=== PATIENT | female | born 1975 | race American Indian/Alaskan Native ===

== ENCOUNTER 2019-01-29 13:58 | Outpatient (CLI) | payer BC ==
--- NOTE | 2019-01-29 15:45 | Mammography Report ---
DIGITAL SCREENING MAMMOGRAM WITH CAD, 01/29/2019 INDICATION: Baseline screening mammography. TECHNIQUE: Digital bilateral 2D mammography was obtained in the craniocaudal and mediolateral obliq ue projections. This examination was interpreted with the benefit of Computer-Aided Detection analysi s. COMPARISON: None. FINDINGS: Breast Density: The breasts are extremely dense, which lowers the sensitivity of mammography. There is no evidence of dominant mass, suspicious calcifications or architectural distortion in eithe r breast. IMPRESSION: No mammographic evidence of malignancy. Follow up recommendation: Routine yearly BI-RADS Category 2: Benign. A "normal" or negative report should not discourage follow up or biopsy of a clinically significant f inding. A written summary of these findings will be mailed to the patient. The patient will be entered into a mammography reporting system which will generate a reminder letter for the patient's next appointmen t at the appropriate interval. The [employer] recommends yearly mammograms starting at age 40 and continuing as l jacklyn as a woman is in good health. Breast MRI is recommended for women with an approximate 20-25% or greater lifetime risk of breast cancer, including women with a strong family history of breast or ova elina cancer or who have been treated for Hodgkin's disease. Signer Name: Olivier Mata MD Signed: 01/29/2019 3:41 PM Workstation Name: [id number]
== END 2019-01-29 13:59 | disposition home or self-care (01) ==
LOC: MAMMO 13:58
PROVIDERS: ATTEND Surgery
DX: Z12.31 Encounter for screening mammogram for malignant neoplasm of breast (principal)
CPT/HCPCS: 77067

== ENCOUNTER 2019-06-30 05:39 | Day surgery (SDC) | payer BC, OTHER ==
[~2019-06-30 05:39] MED LIST: LACTATED RINGERS 1,000 ML IV SCH
[2019-06-30] MEDS ORDERED: VANCOMYCIN/NS 1 GM/250 ML 1 GM/250 ML BAG IV NR (06:00)
[2019-06-30] MEDS ORDERED: GABAPENTIN 300 MG CAP PO NR (06:00)
[2019-06-30] MEDS ORDERED: MAGNESIUM OXIDE 400 MG TAB PO SCH (06:00)
[2019-06-30] MEDS ORDERED: MIDAZOLAM 2 MG/2 ML INJ IV NR (06:00)
[2019-06-30] MEDS ORDERED: SCOPOLAMINE TRANSDERMAL PATCH 72 HR TD NR (06:00)
[2019-06-30] MEDS ORDERED: CELECOXIB 200 MG CAP PO NR (06:00)
[2019-06-30] MEDS ORDERED: BACTERIOSTATIC SODIUM CHLORIDE 0.9% 30 ML VIAL INFILTRATI ONE (06:51)
[2019-06-30] MEDS ORDERED: SODIUM CHLORIDE 0.9% 1000 ML 1,000 ML, EPINEPHrine/PF 1:1,000 1 MG, LIDOCAINE 1% 20 mL ... IJ NR (07:00)
[2019-06-30] MEDS ORDERED: fentaNYL 100 MCG/2 ML INJ ONE (07:27)
[2019-06-30] MEDS ORDERED: MIDAZOLAM 2 MG/2 ML INJ ONE (07:27)
[2019-06-30] MEDS ORDERED: propofoL 200 MG/20 ML VIAL IV ONE (07:27)
[2019-06-30] MEDS ORDERED: ROCURONIUM 50 MG/5 ML INJ IV ONE (07:27)
[2019-06-30] MEDS ORDERED: LIDOCAINE MPF (2%) 20 MG/1 ML VIAL 5 ML ONE (07:27)
[2019-06-30] MEDS ORDERED: METOCLOPRAMIDE 10 MG/2 ML INJ ONE (07:28)
[2019-06-30] MEDS ORDERED: dexAMETHasone 20 MG/5 ML VIAL ONE (07:28)
[2019-06-30] MEDS ORDERED: ONDANSETRON 4 MG/2 ML INJ ONE (07:28)
[2019-06-30] MEDS ORDERED: HYDROmorphone 1 MG/1 ML INJ IV PRN (07:38)
--- NOTE | 2019-06-30 07:38 | Anesthesia Day of Surgery ---
Anesthesia Day of Surgery - Day of Surgery Patient Examined: Yes Patient H&P Reviewed: Yes Patient is NPO: Yes
--- NOTE | 2019-06-30 07:38 | Anesthesia Consultation ---
Anesthesia Consult and Med Hx Date of service: 06/30/19 - Airway Anesthetic Teeth Evaluation: Good ROM Head & Neck: Adequate Mental/Hyoid Distance: Adequate Mallampati Class: Class I Intubation Access Assessment: Good - Pulmonary Exam CTA: Yes - Cardiac Exam Cardiac Exam: RRR - Pre-Operative Health Status ASA Pre-Surgery Classification: ASA1 Proposed Anesthetic Plan: General - Pulmonary Hx Respiratory Symptoms: No - Cardiovascular System Hx Hypertension: No - Central Nervous System CVA: No - Gastrointestinal Hx Gastroesophageal Reflux Disease: No - Endocrine Hx Renal Disease: No Hx Liver Disease: No Hx Insulin Dependent Diabetes: No Hx Non-Insulin Dependent Diabetes: No Hx Thyroid Disease: No - Other Systems Hx Alcohol Use: Yes (OCCA) Hx Obesity: No - Additional Comments Anesthesia Medical History Comments: No hx anesthetic complications.
[2019-06-30] MEDS ORDERED: LIDOCAINE 1%/EPINEPHRINE 1:100,000 VIAL (20 ML) INFILTRATI ONE ×2 (07:41→08:51)
[2019-06-30] MEDS ORDERED: HYDROmorphone 1 MG/1 ML INJ ONE (08:45)
[2019-06-30] MEDS ORDERED: SODIUM CHLORIDE 0.9% IRR 1,500 ML BOTTLE IR ONE (11:02)
[2019-06-30] MEDS ORDERED: KETOROLAC 30 MG/1 ML INJ ONE (13:44)
[2019-06-30] MEDS ORDERED: LACTATED RINGERS 2,000 ML ONE (14:06)
[2019-06-30] MEDS ORDERED: PHENYLEPHRINE/NS 1,000 MCG/10 ML SYRINGE (OR USE) IV ONE (14:07)
[2019-06-30] MEDS ORDERED: GLYCOPYRROLATE 0.4 MG/2 ML INJ ONE (14:33)
[2019-06-30] MEDS ORDERED: NEOSTIGMINE 10MG/10 ML INJ MDV ONE (14:33)
[2019-06-30] MEDS ORDERED: MEPERIDINE 25 MG/1 ML INJ IV PRN (15:10)
[2019-06-30] MEDS ORDERED: MEPERIDINE 25 MG/1 ML INJ ONE (15:11)
--- NOTE | 2019-06-30 15:14 | Operative Report ---
Operative Report Operative Report: Plastic Surgery Operative Note Preoperative Diagnosis: Unacceptable cosmetic appearance Postopertive Diagnosis: Same Procedure: Partial lipoabdominoplasty; Liposuction of the upper and lower abdomen, bra rolls, axilla and posterior waist with [place] butt lift fat grafting to the butt and hips Surgeon: Dr. Lizbeth Levi Web Publisher: None Anesthesia: General endotracheal EBL: 100cc Indications: This patient is a 43 year old AAF who presented with complaint of lost buttock fullness and volume as well as excess skin and fat of the abdomend despite a regular diet and exercise regimen. She has also had loose skin of the lower abdomen. She desires a tummy tuck to achieve a flat abdomen, and also to use the fat for grafting to her buttocks and hips. We discussed the benefits and risks of surgery including infection, hematoma, seroma, scarring, fat necrosis, fat embolus, fat resorption, contour irregularity, skin necrosis, umbilical necrosis, asymmetry and the need for further surgery. Patient understands and accepts these risks and desires to proceed with surgery. Procedure: After marking in preoperative holding the patient was brought into the operating room and placed supine on the OR table. After induction of adequate general endotracheal anesthesia, the patient's trunk was prepped and draped in the usual sterile surgical fashion. To begin, markings were refreshed and 1% lidocaine with epinephrine was injected into the liposuction cannula entry points. Using an 11 blade, cannula entry incisions were made in the lower abdomen, and 2 L of tumescent solution was infiltrated into the tissues of the abdomen and flanks. Power assisted liposcution was performed until aspirate was blood-tinged. We then began the tummy tuck portion of the procedure, creating a lower abdominal incision using a 10 blade, which was carried through subcutaneous tissue using the electrocautery. This dissection along the rectus fascia was carried cephalad and the superior margin of skin that was marked was sharply excised. The weight of the excised skin was 220 g. A 15 Fr Otoniel drain was placed and secured with a 2-0 Nylon suture and we began closure of her incisions in 3 layers beginning with a PDO Quill suture to approximate Noel's fascia follwed by 3-0 Monoderm Quill in 2 layers. Liposuction incisions were closed with 4-0 Monocryl. All incisions were then sealed with Dermabond except at the pubis, which was left unsealed for drainage. The patient was then placed in the prone position and once again cannula entry sites of the posterior waist and buttocks were injected with local anesthesia and opened with an 11 blade. 2 L of tumescent solution was infiltrated into the subcutaneous tissue of the posterior waist, upper and lower back, and power assisted liposuction used to remove excess fat. Once satisfied with the contour we began the fat grafting portion of the procedure. Using blunt cannulas, fat was injected into the subcutaneous tissue of the buttocks and hips bilaterally until a desireable contour was achieved. A total of 1200cc of pure fat was injected into each side. Once fat grafting was complete, 4-0 Monocryl was used to close all cannula entry points. All areas where incisions were placed were then dressed with abdominal pads and the patient was then awakened from general anesthesia and her compression garment was placed. She was then transferred to PACU in stable condition. There were no complications. All sponge, needle and instrume nt counts were correct at the end of the case.
[2019-06-30 15:53] VITALS: BP 126/65
--- NOTE | 2019-06-30 16:30 | Post Anesthesia Evaluation ---
- Post Anesthesia Evaluation Patient Participated: Yes Airway Patent: Yes Stable Respiratory Function: Yes Nausea/Vomiting: No Temp > 96.8F: Yes Pain Manageable: Yes Adequeate Hydration: Yes Anesthesia Complications: No
== END 2019-06-30 16:40 | disposition home or self-care (01) ==
LOC: OR 05:39
PROVIDERS: ATTEND Plastic Surgery
DX: Z41.1 Encounter for cosmetic surgery (principal); Z79.899 Other long term (current) drug therapy; Z91.013 Allergy to seafood; Z90.49 Acquired absence of other specified parts of digestive tract; Z98.51 Tubal ligation status; Z72.89 Other problems related to lifestyle; Z98.890 Other specified postprocedural states; Z80.3 Family history of malignant neoplasm of breast; Z88.8 Allergy status to other drugs, medicaments and biological substances
CPT/HCPCS: 15877; 17999; 19366; 81025; J0171; J1100; J1170; J1885; J2175; J2250; J2370; J2405; J2704; J2710; J2765; J3010; J3370; J7030; J7120

== ENCOUNTER 2019-12-02 08:56 | Outpatient (CLI) | payer BC ==
--- NOTE | 2019-12-02 10:50 | Ultrasound Report ---
ULTRASOUND PELVIS COMPLETE ULTRASOUND TRANSVAGINAL INDICATION / CLINICAL INFORMATION: 789.00Abdominal pain, unspecified site/PELVIC AND PERINEAL PAIN. TECHNIQUE: Transabdominal and Transvaginal. Duplex Color Doppler used: Yes. COMPARISON: None available FINDINGS: UTERUS: Anteverted. - Appearance (if present): Slightly heterogeneous echotexture. - Size in cm (if present): 9.1 x 4.0 x 4.6 cm. - Endometrial Complex (if present): A 6 x 10 mm hyperechoic areas noted in the endometrium near the u terine fundus with no significant internal perfusion on color Doppler interrogation. This may represe nt a small polyp.. Thickness in cm (if measured) = 0.12 cm - Mass lesions: A 1.4 cm intramural fibroid is identified in the anterior wall which may have a small submucosal component. A 1.5 cm subserosal fibroid is noted in the posterior fundal region. - Additional findings: None. RIGHT ADNEXA: No significant ovarian cyst or mass. Normal color Doppler blood flow. The right ovary m easures 3.7 x 1.9 x 2.3 cm. LEFT ADNEXA: No significant ovarian cyst or mass. Normal color Doppler blood flow. The left ovary tomas sures 2.9 x 2.0 x 2.0 cm. URINARY BLADDER: No significant abnormality. FREE FLUID: None. ADDITIONAL FINDINGS: None. IMPRESSION: Mild uterine fibroid disease as described above. Possible endometrial polyp near the uterine fundus. See above. Unremarkable ovaries. Signer Name: Luis A Booth Jr, MD Signed: 12/02/2019 10:46 AM Workstation Name: [id number]
== END 2019-12-02 08:57 | disposition home or self-care (01) ==
LOC: US 08:56
PROVIDERS: ATTEND Obstetrics & Gynecology
DX: D25.9 Leiomyoma of uterus, unspecified (principal)
CPT/HCPCS: 76830; 76856

== ENCOUNTER 2020-02-09 08:07 | Outpatient (CLI) | payer BC ==
--- NOTE | 2020-02-09 09:10 | Mammography Report ---
BILATERAL DIGITAL SCREENING MAMMOGRAM WITH CAD HISTORY: SCREENING MAMMO TECHNIQUE: Routine digital mammographic imaging performed. This examination was interpreted with stephanie langston benefit of Computer-aided Detection analysis. COMPARISON: 01/29/2019. FINDINGS: Breast Density: heterogeneously dense breast parenchymal pattern which somewhat lessens the sensitivi ty of the evaluation. Digital CC and MLO views demonstrate no mammographic evidence of malignancy. IMPRESSION: No mammographic evidence of malignancy. If the clinical examination remains stable, recommend bilate ral mammogram in approximately one year. BIRADS 1: Negative. FURTHER INFORMATION: According to the [employer], yearly mammograms are recommend ed starting at age 40 and continuing as long as a woman is in good health. Clinical Breast Exams shou ld be part of a periodic health exam-about every 3 years for women in their 20s and 30s and every yea r for women 40 and over. Breast self exam is an option for women starting in their 20s. Any breast ch bee noted on a breast self exam should be reported promptly to the patient's healthcare provider. Br east MRI is recommended for women with an approximately 20-25% or greater lifetime risk of breast can cer, including women with a strong family history of breast or ovarian cancer and women who have been treated for Hodgkin's disease. A negative Mammography report should not discourage follow up or biopsy of a clinically significant f inding and/or abnormality. Dense breast tissue may obscure small neoplasms. The patient will be entered into a reminder system with a target due date for the next screening mamm ogram. Signer Name: Gal Melo MD Signed: 02/09/2020 9:06 AM Workstation Name: [id number]
== END 2020-02-09 08:08 | disposition home or self-care (01) ==
LOC: MAMMO 08:07
PROVIDERS: ATTEND Surgery
DX: Z12.31 Encounter for screening mammogram for malignant neoplasm of breast (principal)
CPT/HCPCS: 77067